=== PATIENT | male | born 1960 | race Caucasian/White ===

== ENCOUNTER 2018-05-17 20:53 | Emergency (ER) | payer MEDICAID | END 2018-05-17 23:33 | disposition home or self-care (01) | LOC: FTE 20:53 | DX: B02.9 Zoster without complications (principal) | CPT/HCPCS: 99284 ==

== ENCOUNTER 2018-10-16 19:40 | Emergency (ER) | payer MEDICAID | END 2018-10-16 22:15 | disposition home or self-care (01) | LOC: FTE 19:40 | DX: J02.9 Acute pharyngitis, unspecified (principal); R40.2252 Coma scale, best verbal response, oriented, at arrival to emergency department; R40.2362 Coma scale, best motor response, obeys commands, at arrival to emergency department; R40.2142 Coma scale, eyes open, spontaneous, at arrival to emergency department | CPT/HCPCS: 99283; Z7502 ==